=== PATIENT | male | born 1985 | race Caucasian/White ===

== ENCOUNTER 2022-03-17 03:56 | Emergency (ER) | payer OTHER ==
[2022-03-17] MEDS ORDERED: Acetaminophen 325 MG TAB ONE ×2 (06:31→06:33)
[2022-03-17] MEDS ORDERED: Ibuprofen 200 MG TAB ONE (07:13)
== END 2022-03-17 07:10 | disposition home or self-care (01) ==
LOC: NAV ERS 03:56
DX: S09.21XA Traumatic rupture of right ear drum, initial encounter (principal); S00.11XA Contusion of right eyelid and periocular area, initial encounter; S20.212A Contusion of left front wall of thorax, initial encounter; X58.XXXA Exposure to other specified factors, initial encounter
CPT/HCPCS: 70450; 70486